=== PATIENT | female | born 1970 | race Two or more races ===

== ENCOUNTER 2024-10-10 22:32 | Emergency (ER) | payer OTHER ==
[~2024-10-10] VITALS: Ht 162.6 cm; Wt 74.4 kg
[2024-10-10 22:48] VITALS: BP 178/85; PULSE 88; RESP 16; TEMP 97.9; O2SAT 100
--- NOTE | 2024-10-10 23:35 | ED.PDOC ---
History of Present Illness(SKN HPI Comments This is a 54-year-old female type 2 diabetic patient complaining of cysts to right groin x1 week. Rates pain 10/10 on pain scale pressure throbbing type pain nonradiating. She notes purulent drainage on 1 of the cysts. Denies fevers, chills, nausea or vomiting. Chief Complaint: Wound Check Time Seen by MD: 22:59 History of Present Illness: Nurses Notes, Medications, Allergies Allergies: Uncoded Allergies: SULFAS (Allergy, Unknown, 10/10/24) Home Meds Active Scripts Doxycycline Hyclate (Doxycycline Hyclate) 100 Mg Cap, 100 MG PO BID for 10 Days, #20 CAP Prov:SUMMER GARCIA [employer] 10/11/24 Information Source: Patient Mode of Arrival: Ambulatory Past Medical History PAST MEDICAL HISTORY: DM, HTN Family History Family History: Reviewed,noncontributory to illness Social History Smoker: Non-Smoker Alcohol: Denies ETOH Use Drugs: Denies Drug Use Constitutional: denies: chills, diaphoresis, fatigue, fever, malaise, sweats, weakness, others EENTM: denies: blurred vision, double vision, ear bleeding, ear discharge, ear drainage, ear pain, ear ringing, eye pain, eye redness, hearing loss, mouth pain, mouth swelling, nasal discharge, nose bleeding, nose congestion, nose pain, photophobia, tearing, throat pain, throat swelling, voice changes, others Respiratory: denies: cough, hemoptysis, orthopnea, SOB at rest, shortness of breath, SOB with excertion, stridor, wheezing, others Cardiovascular: denies: chest pain, dizzy spells, diaphoresis, Dyspnea on exertion, edema, irregular heart beat, left arm pain, lightheadedness, palpitations, PND, syncope, others Gastrointestinal: denies: abdomen distended, abdominal pain, blood streaked bowels, constipated, diarrhea, dysphagia, difficulty swallowing, hematemesis, melena, nausea, poor appetite, poor fluid intake, rectal bleeding, rectal pain, vomiting, others Genitourinary: denies: abnormal vagina bleeding, burning, dyspareunia, dysuria, flank pain, frequency, hematuria, incontinence, pain, , vagina discharge, urgency, others Neurological: denies: dizziness, fainting, headache, left sided numbness, left sided weakness, numbness, paresthesia, pre-existing deficit, right sided numb ness, right sided weakness, seizure, speech problems, tingling, tremors, weakness, others Musculoskeletal: denies: back pain, gout, joint pain, joint swelling, muscle pain, muscle stiffness, neck pain, others Integumetry: reports: lumps (Right groin); denies: bruises, change in color, change in hair/nails, dryness, laceration, lesions, rash, wounds, others Allergic/Immunocompromised: denies: Difficulty Healing, Frequent Infections, Hives, Itching, others Hematologic/Lymphatic: denies: anemia, blood clots, easy bleeding, easy bruising, swollen glands, others Endocrine: denies: excessive hunger, excessive sweating, excessive thirst, excessive urination, flushing, intolerance to cold, intolerance to heat, unexplained weight gain, unexplained weight loss, others Psychiatric: denies: anxiety, bipolar disorder, depression, hopeless, panic disorder, schizophrenia, sleepless, suicidal, others Physical Exam General Appearance: No Apparent Distress, Normal HEENT: Pharynx Normal Neck: Full Range of Motion, Non-Tender Respiratory: Lungs Clear, No Respiratory Distress, Normal Breath Sounds Cardiovascular: No Murmur, Normal Peripheral Pulses, Regular Rate/Rhythm Breast Exam: Deferred Gastrointestinal: Non Tender, Soft Genitalia: Other (Abscess noted right groin non fluctuant no noted drainage or streaking.) Pelvic: Deferred Rectal: Deferred Extremities: Normal capillary refill, Normal inspection, Normal range of motion, Non-tender, No pedal edema Musculoskeletal : Apperance: Normal 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 Was a procedure done?: Yes Sedation Sedation?: No Informed consent obtained: Yes Incision and Drainage Incision and Drainage: Abscess Location Right groin Anesthetic: Lidocaine Preparation: Betadine, Saline Incision and Wound: Pus, Blood Informed consent obtained: Yes Risks/benefits/alt described: Yes Notes Patient tolerated well with minimal blood loss. Differential Diagnosis (INTG) Differential Diagnosis: Cellulitis Differential Diagnosis: Contact Dermatitis, Impetigo X-Ray, Labs, Meds, VS Vital Signs Date Time Temp Pulse Resp B/P (MAP) Pulse Ox O2 Delivery O2 Flow Rate FiO2 10/10/24 22:48 97.9 88 16 178/85 (116) 100 10/10/24 22:48 Room Air 10/10/24 22:48 97.9 88 16 178/85 (116) 100 97.9 Current Medications Medications (Trade) Dose Ordered Sig/Cesilia Route Start Time Stop Time Status Last Admin Ceftriaxone Sodium (Rocephin) 1,000 mg ONCE ONCE IM 10/11/24 01:00 10/11/24 01:01 DC 10/11/24 01:00 Lidocaine HCl (Xylocaine 1%) 4 ml ONCE ONCE ID 10/11/24 01:00 10/11/24 01:01 DC 10/11/24 01:00 X-Ray, Labs, Meds, VS Comment I&D abscess see procedure note. Patient given Rocephin 1 g IM we will start patient on doxycycline twice daily times 10 days. Advised to use warm compresses to the abscess to encourage drainage advised to follow up with her PCP, urgent care or back here in the ER in 2-3 days for wound re-evaluation. The counter Motrin or Tylenol as needed for the pain. ER return precautions given patient indicated understanding agrees with discharge plan of care. Time of 1ST Reevaluation: 01:37 Reevaluation 1ST: Improved Patient Education/Counseling: Diagnosis, Treatment, Prognosis, Need For Follow Up Family Education/Counseling: No Family Present Departure 1 Departure Time of Disposition: 01:36 Impression: Primary Impression: Abscess of groin, right Disposition: 01 HOME / SELF CARE / HOMELESS Condition: Stable e-Prescriptions Doxycycline Hyclate (Doxycycline Hyclate) 100 Mg Cap 100 MG PO BID for 10 Days, #20 CAP Prov: SUMMER GARCIA 10/11/24 Discharged With: Self Critical Care Note Critical Care Time?: No Stability Stability form required: SUMMER Arreguin Oct 10, 2024 23:35
[2024-10-11] MEDS: cefTRIAXone SOD 1,000 MG VL IM ONE (01:00)
[2024-10-11] MEDS: LIDOCAINE 1% HCL (LOCAL ANESTH.) INJ 20ML MDV ID ONE (01:00)
[2024-10-11] MEDS ORDERED: DOXY100C4 PO (01:38)
== END 2024-10-11 02:02 | disposition home or self-care (01) ==
LOC: ER 22:32
DX: L02.214 Cutaneous abscess of groin (principal); I10 Essential (primary) hypertension; E11.9 Type 2 diabetes mellitus without complications; Z88.2 Allergy status to sulfonamides
CPT/HCPCS: 10060; 96372; 99283; J0696; J2003

== ENCOUNTER 2025-06-06 10:34 | Emergency (ER) | payer OTHER ==
[~2025-06-06] VITALS: Ht 162.6 cm; Wt 76.5 kg
[2025-06-06 10:36] VITALS: TEMP 98.5
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
[2025-06-06 11:09] VITALS: BP 172/105; PULSE 93; RESP 19; O2SAT 97
--- NOTE | 2025-06-06 11:33 | DVH ---
XY CHEST TWO VIEWS ROUTINE, HISTORY: CP COMPARISON: None None TECHNICAL DATA: 2 view of the chest was obtained. FINDINGS: Lines and tubes: None Cardiomediastinal silhouette: normal Pulmonary vasculature: normal Lung expansion: normal Lung airspace: normal Lung interstitium: normal Pleura: normal Pneumothorax: no Bones: Unremarkable Other: no IMPRESSION: No acute intrathoracic abnormality.
[2025-06-06 11:38] VITALS: PULSE 83
[2025-06-06 11:38] LABS: Hematocrit 45.6 % (36.0-46.0); Hemoglobin 15.4 g/dL (12.2-16.2); Mean Corpuscular Hemoglobin 28.1 pg (28.0-32.0); Mean Corpuscular Volume 83.0 fL (80.0-100.0); Nucleated Red Blood Cells % 0.2 %
--- NOTE | 2025-06-06 11:39 | ECG ---
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
[2025-06-06 11:43] LABS: Chloride 106 mmol/L (98-107); Potassium 4.0 mmol/L (3.5-5.1); Sodium 140 mmol/L (136-145)
[2025-06-06 11:44] LABS: Anion Gap 7 (5-15); Calcium 9.6 mg/dL (8.7-10.4); Carbon Dioxide 27 mmol/L (20-31)
[2025-06-06 11:49] LABS: BUN/Creatinine Ratio 9.2 (10.0-20.0)
[2025-06-06 11:50] LABS: Blood Urea Nitrogen 8 mg/dL (9-23); Glucose 268 mg/dL (74-106)
[2025-06-06] MEDS ORDERED: TRAM50TA2 PO (12:28)
--- NOTE | 2025-06-09 14:11 | ECG ---
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
== END 2025-06-06 13:01 | disposition home or self-care (01) ==
LOC: ER 10:34
DX: R07.89 Other chest pain (principal); F17.210 Nicotine dependence, cigarettes, uncomplicated; E11.9 Type 2 diabetes mellitus without complications; I10 Essential (primary) hypertension; E78.5 Hyperlipidemia, unspecified; Z79.899 Other long term (current) drug therapy; Z98.890 Other specified postprocedural states
CPT/HCPCS: 36415; 71046; 80048; 84484; 85025; 93005